=== PATIENT | female | born 1945 | race Caucasian/White ===

== ENCOUNTER 2019-03-02 09:18 | Outpatient (CLI) | payer MEDICARE, MEDICAID | END 2019-03-02 23:59 | disposition home or self-care (01) | LOC: CFH 09:18 | PROVIDERS: ATTEND Internal Medicine Cardiovascular Disease | DX: Z02.9 Encounter for administrative examinations, unspecified (principal) ==

== ENCOUNTER 2019-03-02 12:25 | Outpatient (CLI) | payer MEDICARE, MEDICAID ==
[~2019-03-02 12:25] MED LIST: REGADENOSON 0.4 MG/5 ML SYRINGE ONE
== END 2019-03-02 23:59 | disposition home or self-care (01) ==
LOC: CFH 12:25
PROVIDERS: ATTEND Internal Medicine Cardiovascular Disease
DX: Z01.810 Encounter for preprocedural cardiovascular examination (principal); I25.89 Other forms of chronic ischemic heart disease
CPT/HCPCS: 78452; 93017; A9502; J2785